=== PATIENT | male | born 1955 | race African-American/Black ===

== ENCOUNTER 2020-03-06 01:21 | Emergency (ER) | payer OTHER ==
[~2020-03-06] VITALS: Ht 182.8 cm; Wt 88.5 kg
[2020-03-06] MEDS ORDERED: PREDNISONE10 MG PO (02:15)
[2020-03-06] MEDS ORDERED: PEPCID20 MG PO (02:15)
== END 2020-03-06 02:39 | disposition home or self-care (01) ==
LOC: ED 01:21
DX: L23.7 Allergic contact dermatitis due to plants, except food (principal); Z87.891 Personal history of nicotine dependence